=== PATIENT | male | born 1945 | race Caucasian/White ===

== ENCOUNTER → 2016-12-13 | Outpatient (CLI) | payer BC ==
--- NOTE | 2016-12-13 18:19 | REP ---
Clinical: Trauma. Technique: AP and lateral views of the right tibia / fibula. Findings: No acute fracture or dislocation. Skeletal structures, joint spaces, and surrounding soft tissues are relatively normal for age. 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 Impression: No acute fracture or dislocation. Signed by Sunny Larsen MD 12/13/2016 06:11 P
== END ==
LOC: M RAD 17:38
PROVIDERS: ATTEND Physician Assistant Medical
DX: M79.661 Pain in right lower leg (principal)

== ENCOUNTER 2016-12-21 08:45 | Inpatient (IN) | payer MEDICARE, BC ==
[~2016-12-21] VITALS: Ht 182.9 cm; Wt 101.1 kg
[2016-12-21] MEDS ORDERED: LISI10TA2 PO (09:02)
[2016-12-21] MEDS ORDERED: CEPH500C PO (09:02)
[2016-12-21] MEDS ORDERED: VICO5TAB16 PO (09:02)
[2016-12-21] MEDS ORDERED: MORPHINE 2 MG/ML 1ML SYRINGE IV ONE ×2 (09:15→14:30)
[2016-12-21] MEDS ORDERED: PIPERACILLIN/TAZOBACTAM SOD 3.375 GM in D5W MINI-BAG PLUS 50 ML IV ONE (09:15)
[2016-12-21] MEDS ORDERED: ONDANSETRON 4MG/2ML VIAL (J2405) IV ONE (09:15)
[2016-12-21] MEDS ORDERED: VANCOMYCIN HCL 1,000 MG, VIAL MATE ADAPTER 1 EACH in D5W 250 ML IV ONE (09:15)
[2016-12-21 09:27] LABS: MEAN CORPUSCULAR HEMOGLOBIN 32.3 pg (27.0-33.0); MEAN CORPUSCULAR HGB CONC 34.2 g/dl (32.0-36.5); MEAN CORPUSCULAR VOLUME 94.3 fl (80.0-96.0); WHITE BLOOD COUNT 8.7 K/mm3 (4.0-10.0)
[2016-12-21 10:25] LABS: ALBUMIN/GLOBULIN RATIO 0.93 (1.00-1.93); ALKALINE PHOSPHATASE 130 U/L (45-117); ALT/SGPT 26 U/L (12-78); ANION GAP 6 MEQ/L (8-16); AST/SGOT 24 U/L (15-37); BLOOD UREA NITROGEN 13 MG/DL (7-18); CALCIUM LEVEL 9.3 MG/DL (8.8-10.2); CARBON DIOXIDE LEVEL 28 MEQ/L (21-32); CHLORIDE LEVEL 103 MEQ/L (98-107); CREATININE FOR GFR 0.89 MG/DL (0.70-1.30); GLOMERULAR FILTRATION RATE > 60.0 (>42); GLUCOSE, FASTING 111 MG/DL (83-110); POTASSIUM SERUM 4.2 MEQ/L (3.5-5.1); SODIUM LEVEL 137 MEQ/L (136-145); TOTAL PROTEIN 8.3 GM/DL (6.4-8.2)
[2016-12-21] MEDS ORDERED: FIBE62TA PO (14:57)
[2016-12-21] MEDS ORDERED: ZOLP12.515 PO (14:57)
[2016-12-21] MEDS ORDERED: ACIDTAB7 PO (14:57)
[2016-12-21] MEDS ORDERED: LISI-538 PO (14:57)
[2016-12-21] MEDS ORDERED: TYLE500T78 PO (14:59)
[2016-12-21] MEDS ORDERED: ONDANSETRON 4MG/2ML VIAL (J2405) IV PRN (16:45)
[2016-12-21] MEDS ORDERED: BISACODYL 5 MG TAB PO PRN (16:45)
[2016-12-21] MEDS ORDERED: ACETAMINOPHEN TAB 650MG DOSE (2X325MG) PO PRN (16:45)
--- NOTE | 2016-12-21 17:11 | REP ---
Clinical: Trauma with pain and edema are . Technique: Soriano scale and color Doppler evaluation using linear high frequency transducer. Findings: Ultrasound examination of the right lower extremity deep venous structures from the common femoral vein to the popliteal vein demonstrates normal compressibility flow and wave patterns in response to respiration and augmentation. There is no evidence for deep venous thrombosis. A complex 8.4 x 1.6 x 5.5 cm fluid collection overlies the mid tibia consistent with hematoma versus abscess (less likely). Impression: No evidence for deep venous thrombosis. Edema and suspected hematoma overlies the anterior mid tibia. Signed by Sunny Larsen MD 12/21/2016 05:03 P
[2016-12-21 17:45] VITALS: BP 167/81
[2016-12-21] MEDS: PIPERACILLIN/TAZOBACTAM SOD 3.375 GM in D5W MINI-BAG PLUS 50 ML IV SCH (19:07)
[2016-12-21 20:00] VITALS: BP 136/69
--- NOTE | 2016-12-21 20:15 | REP ---
Clinical: Right lower extremity swelling. Technique: Pre and postcontrast MRI of the right tibia / fibula from the proximal metaphysis to the proximal ankle with T1 (axial, coronal, sagittal), T2 STIR ( axial, coronal, sagittal), and postcontrast T1 (axial, sagittal) sequences using 21 miles ProHance gadolinium based contrast material. Findings: Subcutaneous edema with enhancement on post gadolinium imaging is consistent with cellulitis. There is a subcutaneous hematoma overlying the mid anterior auguste measuring approximately 8.6 x 4.8 x 1.7 cm. There is no evidence for acute fracture or osseous enhancement to suggest osteomyelitis. Impression: Cellulitis and subcutaneous hematoma. No acute fracture or osteomyelitis appreciated. Signed by Sunny Larsen MD 12/21/2016 08:06 P
[2016-12-21] MEDS: VANCOMYCIN HCL 1,000 MG, VIAL MATE ADAPTER 1 EACH in D5W 250 ML IV SCH (20:32)
[2016-12-21] MEDS: PERCOCET 5MG/325MG TAB PO PRN (22:01)
[2016-12-22] VITALS: BP 127/59
[2016-12-22] MEDS: zolPIDEM CR 6.25MG TABLET (AMBIEN CR) PO SCH ×2 (02:06→21:14)
[2016-12-22] MEDS: PIPERACILLIN/TAZOBACTAM SOD 3.375 GM in D5W MINI-BAG PLUS 50 ML IV SCH ×3 (02:07→19:03)
--- NOTE | 2016-12-22 06:02 | HPE ---
DATE OF ADMISSION: 12/21/2016 PRIMARY CARE PHYSICIAN: Dr. Cast. The patient also visits Dr. Lynn in [place]. CHIEF COMPLAINT: Right lower extremity pain and swelling. HISTORY OF PRESENT ILLNESS: Mr. Liz is a 71-year-old male who presented to the emergency room (ER) due to experiencing excruciating pain in the right lower extremity mostly. The patient expressed that a week and a day ago, the patient as walking down when he missed a step, and he injured his right anterior tibia by rubbing and scratching against a wooden step. The patient expressed that the site immediately started bleeding and became swollen, and had tenderness to palpation. The patient expressed that the pain was 8-9 out of 10, and it was an aching pain. The patient went to the urgent care where they did an x-ray and they did not find any fracture of the tibia, and they started the patient on cephalexin due to the possibility of cellulitis. The patient expressed that he took this medication for one week; however, pain continues and became worse yesterday when he went to urgent care, and they continued the patient on antibiotic and they gave him Vicodin. The patient expressed that he took one pill of Vicodin which did not help, and this morning the patient expressed that the pain was excruciating; therefore, he came to the ER. The patient also noticed that the swelling has increased, especially around the ankle and a small anterior area of the tibia; however, the swelling has decreased today. The patient expressed that first in the morning when he stands up, the pain is high. However, by ambulation the pain decreases. The patient denies sensation changes or feeling that his right foot becomes colder than usual. The patient also expressed that he feels that he has a good pulse in his right lower extremity. The patient denies fever, chills, or night sweats. The patient denies loss of appetite. The patient also denies problem with moving his right lower extremity; however, palpating the area increased the pain. ALLERGIES: No known allergies. HOME MEDICATIONS: - acetaminophen 500 mg by mouth every four hours as needed for pain - Fiber Lax one tablet by mouth daily - cephalexin 500 mg by mouth every six hours - lactobacillus one tablet by mouth daily - lisinopril 20 mg by mouth daily - zolpidem tartrate 12.5 mg by mouth at bedtime PAST MEDICAL HISTORY: 1. Hypertension. 2. Insomnia. 3. Mild irritable bowel syndrome (IBS). 4. Herniated discs in the lower back. 5. Prostate cancer. PAST SURGICAL HISTORY: 1. Laminectomy. 2. Prostate surgery secondary to prostate cancer. SOCIAL HISTORY: The patient expressed that he lives seven months in [place], and five months in [place]. The patient lives alone since his a year ago. The patient has a girlfriend. However, the patient does not live with his girlfriend at this time. The patient denies illicit drug use. The patient has no pets. The patient occasionally drinks alcoholic beverages. The patient expressed that when he was in his 20s, he smoked cigarettes for four years, but less than a half pack a day. The patient has three sons who are healthy for age. FAMILY HISTORY: The patient has older sister who has breast cancer; however, after lumpectomy she is doing fine. The patient's father at age 92; however, the he had colon cancer. The patient's mother due to stomach cancer. REVIEW OF SYSTEMS: GENERAL: The patient denies fever, chills, night sweats, weight loss, weight gain. HEENT: The patient denies acute vision or hearing changes. The patient denies problems with chewing food or sinusitis. LUNGS: The patient denies shortness of breath, wheezing, or coughing. HEART: The patient denies palpitations, racing or skipping heartbeat, or chest pain. ABDOMEN: The patient denies abdominal pain, nausea, vomiting, diarrhea, constipation, melena, hematochezia, hemoptysis. EXTREMITIES: The patient has decreased ambulation due to right lower extremity pain. The patient also noticed swelling and erythema on the right lower extremity. NEUROLOGIC: The patient denies history of transient ischemic attack (TIA), cerebrovascular accident (CVA) or seizure-type activity. PHYSICAL EXAMINATION: VITAL SIGNS: Temperature 98.7, pulse 108, respiratory rate 20, blood pressure 132/87, pulse oximetry 97% on room air. GENERAL APPEARANCE: The patient is lying in bed in no acute distress. The patient was awake, alert, and oriented to time, place, and person. HEENT: Normocephalic, atraumatic. Pupils are equal and reactive to light. Oral mucosa is moist. NECK: Soft, supple. No lymphadenopathy, thyromegaly or jugular venous distention (JVD). HEART: Regular rate and rhythm. Normal S1, S2. ABDOMEN: Soft. Nontender. Positive bowel sounds in all quadrants. LUNGS: Clear breath sounds bilaterally. Good air movement. EXTREMITIES: The patient has pitting edema in the right lower extremity. The patient also has swelling on the anterior surface of the tibia, 5 x 7 cm, as well as erythema. The area is tender to palpation. The patient also has a healing wound in the anterior surface of the tibia (about 28 cm). However, no active bleeding or drainage was noticed. The patient has normal range of motion both upper and lower extremities. The patient has normal strength and sensation at the feet bilaterally. Doppler examination of the right lower extremity: The right dorsalis pedis and posterior tibial were normal. NEUROLOGIC: Cranial nerves II through XII were intact. No focal deficiencies. LABORATORY DATA: White blood cells 8.7, red blood cells 5.32, hemoglobin 17.2, hematocrit 50.1, MCV 94.3, MCH 32.3, MCHC 34.2, RDW 13, platelet count 238. ESR 16. Sodium 137, potassium 4.2, chloride 103, carbon dioxide 28, anion gap 6, BUN 13, creatinine 0.89, GFR more than 60, fasting glucose 111, lactic acid 1.2, calcium 9.3, total bilirubin 1.0, AST 24, ALT 26, alkaline phosphatase 130. C-reactive protein is 1.21. Total protein 8.3, albumin 4.0. MICROBIOLOGY: Blood culture is pending. IMAGING: MRI of the tibia-fibula without, followed by with, shows benign non-ossifying fibroma of the distal tibia, as well as enhancing subcutaneous tissue suggesting cellulitis with hematoma over the mid tibia. No osteomyelitis. Doppler ultrasound of the right lower extremity shows no evidence of deep venous thrombosis (DVT). Edema and suspected hematoma overlying the anterior mid tibia. ASSESSMENT AND PLAN: 1. Right lower extremity pain. This is possibly secondary to cellulitis as well as right mid tibia hematoma. At this point, we will continue the patient on Zosyn and vancomycin. Doppler ultrasound and physical examination did not show any possibility of compartment syndrome; however, we will contact surgery for consult in the case the patient requires drainage of hematoma. Also, we will continue trending C-reactive protein. However, the patient has normal white blood cells. The patient also is afebrile. Also, we will continue managing the pain with Percocet and morphine as needed for pain. 2. Hypertension. We will continue the patient on home medication (lisinopril 20 mg by mouth daily). 3. Back pain. This is a chronic issue. At this time, the patient is stable. 4. Deep venous thrombosis (DVT) prophylaxis. Due to the hematoma, we have not started the patient on anticoagulation; however, we have started the patient on TEDs and sequentials on the left lower extremity due to patient having hematoma and cellulitis on the right lower extremity. My preceptor for this patient encounter was Dr. Dalal. The preceptor was physically present in the building during the encounter and was fully available as needed. All aspects of the patient interview, examination, medical decision making process, and medical care plan development were reviewed and approved by the preceptor. The preceptor is aware and concurs with the plan as stated in the body of this note and will attest to such by his/her co-signature.
[2016-12-22 07:30] LABS: BASO # 0.1 K/mm3 (0.0-0.2); BASO % 0.8 % (0.0-1.0); EOS # 0.4 K/mm3 (0.0-0.50); LARGE UNSTAINED CELL # 0.3 K/mm3 (0.0-0.4); LARGE UNSTAINED CELL % 3.3 % (0.0-4.0); LYMPH # 1.5 K/mm3 (1.5-4.5); LYMPH % 19.4 % (24.0-44.0); MEAN CORPUSCULAR HEMOGLOBIN 31.6 pg (27.0-33.0); MEAN CORPUSCULAR HGB CONC 33.2 g/dl (32.0-36.5); MEAN CORPUSCULAR VOLUME 95.2 fl (80.0-96.0); MONO # 0.6 K/mm3 (0.0-0.8); MONO % 7.9 % (0.0-5.0); NEUTROPHILS # 4.8 K/mm3 (1.8-7.7); NEUTROPHILS % 63.6 % (36.0-66.0); PLATELET COUNT, AUTOMATED 242 k/mm3 (150-450); WHITE BLOOD COUNT 7.6 K/mm3 (4.0-10.0)
[2016-12-22 07:53] LABS: ALBUMIN 3.4 GM/DL (3.2-5.2); ALBUMIN/GLOBULIN RATIO 0.87 (1.00-1.93); ALKALINE PHOSPHATASE 107 U/L (45-117); ALT/SGPT 22 U/L (12-78); ANION GAP 5 MEQ/L (8-16); AST/SGOT 18 U/L (15-37); BLOOD UREA NITROGEN 14 MG/DL (7-18); CARBON DIOXIDE LEVEL 30 MEQ/L (21-32); CHLORIDE LEVEL 102 MEQ/L (98-107); CREATININE FOR GFR 0.95 MG/DL (0.70-1.30); GLOMERULAR FILTRATION RATE > 60.0 (>42); GLUCOSE, FASTING 99 MG/DL (83-110); POTASSIUM SERUM 4.2 MEQ/L (3.5-5.1); SODIUM LEVEL 137 MEQ/L (136-145); TOTAL PROTEIN 7.3 GM/DL (6.4-8.2)
[2016-12-22 08:00] VITALS: BP 139/78
[2016-12-22] MEDS: FIBER-CON 625 MG TAB PO SCH (08:10)
[2016-12-22] MEDS: VANCOMYCIN HCL 1,000 MG, VIAL MATE ADAPTER 1 EACH in D5W 250 ML IV SCH ×2 (08:10→21:14)
[2016-12-22] MEDS: PERCOCET 5MG/325MG TAB PO PRN ×3 (08:15→20:36)
[2016-12-22] MEDS: LISINOPRIL 20 MG TAB PO SCH (08:16)
--- NOTE | 2016-12-22 13:37 | IPN ---
DATE OF VISIT: 12/22/2016 SUBJECTIVE: Mr. Liz is a 71-year-old male who was seen and examined at the bedside. The patient denies overnight issues. The patient denies chest pain, orthopnea, paroxysmal nocturnal dyspnea (PND). The patient also denies nausea, vomiting, diarrhea, or constipation. The patient expressed that he has been ambulating to the bathroom, and he still feels tightness when he is ambulating on the right lower extremity. However, the patient expressed that the pain has decreased. However, he continues to have the anterior tibial swelling secondary to hematoma and erythema, possibly secondary to cellulitis. OBJECTIVE: VITAL SIGNS: Temperature 99.1, pulse 89, respiratory rate 18, blood pressure 139/78, pulse oximetry 97% on room air. TOTAL INTAKE: From yesterday 710. TOTAL OUTPUT: 150. GENERAL APPEARANCE: The patient was lying in bed, in no acute distress. The patient was awake, alert, and oriented to time, place, and person. HEENT: Normocephalic, atraumatic. Pupils are equal and reactive to light. Oral mucosa is moist. NECK: Soft, supple. No lymphadenopathy, thyromegaly, or jugular venous distention (JVD). HEART: Regular rate and rhythm. Normal S1, S2. ABDOMEN: Soft. Nontender. Positive bowel sounds in all quadrants. LUNGS: Clear breath sounds bilaterally. Good air movement. EXTREMITIES: The patient has mild swelling in the right lower extremity, mostly around the right ankle. The patient continues to have swelling on the anterior surface of the tibia, as well as erythema. The patient continues to have tenderness to palpation in the area of erythema around the hematoma area. However, no drainage, bleeding was noticed. The patient has normal range of motion in both lower extremities. The patient has normal strength in both lower extremities. LABORATORY DATA: White blood cells 7.6, red blood cells 4.09, hemoglobin 16.1, hematocrit 48.5, MCV 95.2, MCH 31.6, MCHC 33.2, RDW 13, platelet count 242, neutrophil percentage 63.6, lymphocyte percentage 19.4, monocyte percentage 7.9, eosinophil percentage 5, basophil percentage 0.8, leukocyte percentage 3.3. Sodium 137, potassium 4.2, chloride 102, carbon dioxide 30, anion gap 5, BUN 14, creatinine 0.95, glomerular filtration rate more than 60, fasting glucose 99, calcium 9, total bilirubin 1, AST 18, ALT 22, alkaline phosphatase 107. C-reactive protein 1.64, total protein 7.3, albumin 3.4. MICROBIOLOGY: Blood culture negative for the past 24 hours. ASSESSMENT AND PLAN: 1. Right lower extremity. Dr. Alvarez has seen the patient today. Based upon his recommendation, we will continue to monitor his right lower extremity for swelling and keep the foot elevated when he is not ambulating. If it starts to appear more like an abscess by tomorrow he may need drainage. however if it is improving, patient can be D/C home and follow up with Dr. Alvarez as an outpatient. At this time, we will continue the patient on the current antibiotic (Zosyn and vancomycin). Also, we will continue managing the pain with the current pain medications (morphine and Percocet as needed). The patient is afebrile, and the patient does not have leukocytosis. 2. Hypertension. We will continue the patient on lisinopril 20 mg by mouth daily. At this time, the patient's blood pressure is stable. 3. Back pain. This is a chronic issue. The patient is stable. 4. Deep venous thrombosis (DVT) prophylaxis. We will continue the patient on thromboembolic deterrents (TEDs) and sequentials on the left lower extremity due to the patient having hematoma and cellulitis on the right lower extremity. 5. History of irritable bowel syndrome. The patient expressed that he has been diagnosed with mild history of irritable bowel syndrome. We will continue the patient on calcium polycarbophil by mouth daily. The patient is also on Dulcolax 5 mg daily as needed constipation. 6. Insomnia. We will continue the patient on his home medication (Ambien CR 12.5 mg by mouth nightly). My preceptor for this patient encounter was Mirna Vernon MD. The preceptor was physically present in the building during the encounter and was fully available. As needed, all aspects of the patient interview, examination, medical decision making process, and medical care plan development were reviewed and approved by the preceptor. The preceptor is aware and concurs with the plan as stated in the body of this note and will attest to such by his/her cosignature. I, Mirna Vernon, have both independently examined this patient as well as reviewed the documentation. I have discussed in detail with the resident the findings and plan of treatment as documented in the residents documentation. I will continue to follow the patient and offer further guidance to the patients care as necessary. VITO
--- NOTE | 2016-12-22 13:59 | CR ---
DATE OF CONSULTATION: 12/22/2016 CHIEF COMPLAINT: Right lower extremity pain. REASON FOR CONSULTATION: Right lower extremity hematoma versus abscess. HISTORY OF PRESENT ILLNESS: The patient is a 71-year-old male who presents to the emergency room due to increasing pain and swelling in the right lower extremity. A week ago from this Tuesday, the patient with walking up some stairs and missed a step and slid down his auguste creating a large scrape as well as a fairly quick onset of a hematoma in his mid anterior auguste. He was followed up at outpatient Urgent Care. The wound was cleaned up and dressing was applied. He was placed on Keflex outpatient. However, because of increasing pain and swelling in the leg, he came into the emergency room last night for evaluation. Overnight, he was laid in bed with the right leg elevated. This morning, he feels like the pain, the swelling and the redness are all much improved. He denies any fevers or chills, but he is having like a sharp pain any time he tries to walk on that right leg. He denies any blood thinners at home. No previous trauma to the area. He does have a history of venous stasis dermatitis of bilateral lower extremities, but he has not had any surgery for those the past and does not wear any compression stockings. PAST MEDICAL HISTORY: 1. Hypertension. 2. Insomnia. 3. Irritable bowel syndrome (IBS). 4. Herniated disc of his lower back. 5. Prostate cancer. PAST SURGICAL HISTORY: 1. Laminectomy. 2. Prostate surgery. ALLERGIES: None. HOME MEDICATIONS: Please see medical record. FAMILY HISTORY: Noncontributory. SOCIAL HISTORY: Denies any current tobacco or drug abuse. REVIEW OF SYSTEMS: Pertinent positive and negatives as stated in history of present illness (HPI). PHYSICAL EXAMINATION: General: The patient is alert and oriented times three, in no acute distress. Vitals: Temperature 99.1, pulse 89, respirations 18, blood pressure 139/78, pulse oximetry 97% on room air. HEENT: Pupils equally round and react to light and accommodation. Heart: S1, S2, regular rate and rhythm. Lungs: Clear to auscultation bilaterally. Abdomen: Soft, nontender, nondistended. Extremities: There are bilateral lower extremity venous stasis dermatitis. Distal pulses are palpable and equal bilaterally. There was a 7 x 7 cm fluid collection in the right mid anterior auguste without any surrounding erythema other than his dermatitis. No warmth, but the area is fluctuant and soft, consistent with likely resolving abscess versus hematoma. There is also bruising to the right lower extremity distal to this, likely gravity dependent. LABORATORY DATA: White count 8.7 yesterday and 7.6 today, hemoglobin 16.1, platelets 242. Potassium 4.2 and lactic acid 1.2. IMAGING STUDIES: MRI of the extremity shows cellulitis with a subcutaneous hematoma of the right auguste measuring 8.6 x 4.8 by 1.7 cm. No evidence for fracture or osteomyelitis. Vascular ultrasound shows no signs of deep vein thrombosis (DVT). Edema and a suspected hematoma overlies the anterior mid tibia. ASSESSMENT/PLAN: The patient is a 71-year-old male who presents status post fall with a hematoma of the right lower extremity. This does not appear to be infected currently. This is likely hematoma rather than an abscess. It is soft to the touch. His change in symptoms for the past week is likely secondary to the swelling going down into the ankle and the foot due to gravity which is causing some tightening in the ankle and some pain associated with that. Since he has been in bed for 24 hours with the right leg elevated up in the air, the swelling has gone down and his pain and symptoms have already shown signs of improvement. At this time, since is the first time I have seen it, it does not appear to be tight. I am not concerned about muscle necrosis posterior to this and it does not appear to be an abscess on physical exam. Therefore, we will continue to watch it and keep the foot elevated when he is not ambulating. Will see how he does by tomorrow morning. If it starts to appear more like an abscess by tomorrow, then we will consider drainage, otherwise if it is showing signs of continued improvement, then he can be discharged home tomorrow and follow up with me in the office as an outpatient.
[2016-12-22 16:00] VITALS: BP 148/75
[2016-12-22 20:00] VITALS: BP 154/81
[2016-12-23] VITALS: BP 138/78
[2016-12-23] MEDS: PIPERACILLIN/TAZOBACTAM SOD 3.375 GM in D5W MINI-BAG PLUS 50 ML IV SCH ×3 (02:15→17:17)
[2016-12-23] MEDS: PERCOCET 5MG/325MG TAB PO PRN ×3 (02:16→17:16)
[2016-12-23 07:00] LABS: BASO # 0.1 K/mm3 (0.0-0.2); BASO % 0.9 % (0.0-1.0); EOS # 0.4 K/mm3 (0.0-0.50); EOS % 5.6 % (0.0-3.0); LARGE UNSTAINED CELL # 0.1 K/mm3 (0.0-0.4); LYMPH # 1.7 K/mm3 (1.5-4.5); LYMPH % 21.3 % (24.0-44.0); MEAN CORPUSCULAR HEMOGLOBIN 30.9 pg (27.0-33.0); MEAN CORPUSCULAR HGB CONC 32.7 g/dl (32.0-36.5); MEAN CORPUSCULAR VOLUME 94.3 fl (80.0-96.0); MONO # 0.6 K/mm3 (0.0-0.8); NEUTROPHILS # 4.6 K/mm3 (1.8-7.7); NEUTROPHILS % 62.3 % (36.0-66.0); PLATELET COUNT, AUTOMATED 259 k/mm3 (150-450); RED CELL DISTRIBUTION WIDTH 13.1 % (11.5-14.5); WHITE BLOOD COUNT 7.3 K/mm3 (4.0-10.0)
[2016-12-23 07:12] LABS: ALBUMIN 3.5 GM/DL (3.2-5.2); ALBUMIN/GLOBULIN RATIO 0.78 (1.00-1.93); ALKALINE PHOSPHATASE 107 U/L (45-117); ALT/SGPT 23 U/L (12-78); ANION GAP 9 MEQ/L (8-16); AST/SGOT 15 U/L (15-37); BILIRUBIN,TOTAL 1.2 MG/DL (0.2-1.0); BLOOD UREA NITROGEN 11 MG/DL (7-18); CARBON DIOXIDE LEVEL 28 MEQ/L (21-32); CHLORIDE LEVEL 100 MEQ/L (98-107); CREATININE FOR GFR 1.08 MG/DL (0.70-1.30); GLOMERULAR FILTRATION RATE > 60.0 (>42); GLUCOSE, FASTING 98 MG/DL (83-110); SODIUM LEVEL 137 MEQ/L (136-145)
[2016-12-23 08:00] VITALS: BP 135/80
[2016-12-23] MEDS: FIBER-CON 625 MG TAB PO SCH (08:00)
[2016-12-23] MEDS: LISINOPRIL 20 MG TAB PO SCH (08:00)
[2016-12-23] MEDS: VANCOMYCIN HCL 1,000 MG, VIAL MATE ADAPTER 1 EACH in D5W 250 ML IV SCH ×2 (08:00→20:01)
[2016-12-23] MEDS ORDERED: MIRALAX *UNIT DOSE* 17GM PACKET PO PRN (08:30)
[2016-12-23] MEDS ORDERED: LIDOCAINE W/EPINEPHRINE 1% 20ML VIAL SC ONE (09:00)
[2016-12-23] MEDS: DOCUSATE SODIUM 100 MG CAP PO SCH ×2 (10:35→20:01)
[2016-12-23 16:00] VITALS: BP 141/83
--- NOTE | 2016-12-23 16:01 | IPN ---
DATE: 12/23/2016 SUBJECTIVE: Mr. Liz is a 71-year-old male who was seen and examined at the bedside. Patient denies overnight issues. Patient denies chest pain, orthopnea , or paroxysmal nocturnal dyspnea (PND). Patient also denies nausea, vomiting, or diarrhea. However, patient feels constipated. Patient expressed that he still has discomfort with walking with the right lower extremity and he feels that his hematoma has not changed in size. OBJECTIVE: VITAL SIGNS: Temperature 98.4, pulse 78, respiratory rate 18, blood pressure 138/78, pulse oximetry 96% on room air. Total intake from yesterday 2510, total output 1600. GENERAL APPEARANCE: Patient was lying in bed in no acute distress. Patient was awake, alert, and oriented to time, place, and person. HEENT: Normocephalic, atraumatic. Pupils equal, round, and reactive to light. Oral mucous is moist. NECK: Soft, supple. No lymphadenopathy. No thyromegaly. No jugular venous distention (JVD). HEART: Regular rate and rhythm, normal S1, S2. ABDOMEN: Soft, nontender. Positive bowel sounds in all quadrants. LUNGS: Clear breath sounds bilaterally, good air movement. EXTREMITIES: Patient has mild swelling in the right lower extremity, which is decreased compared to yesterday, mostly around the right ankle. Patient has normal range of motion in both upper and lower extremities. The hematoma in anterior tibia has not changed in size compared to yesterday, however the erythema has decreased compared to yesterday. Patient has mild tenderness with palpation in the erythematous area and the anterior side of the right lower extremity. LABORATORY DATA: White blood cells 7.3, red blood cells 5.15, hemoglobin 15.9, hematocrit 48.5, MCV 94.3, MCH 30.9, MCHC 32.7, RDW 13.1, platelet count 259, neutrophil percentage 62.3, lymphocyte percentage 21.3, monocyte percentage 8, eosinophil percentage 5.6, basophil percentage 0.9, leukocyte percentage 2. Sodium 137, potassium 4, chloride 100, carbon dioxide 28, anion gap 9, BUN 11, creatinine 1.07, glomerular filtration rate more than 60, fasting glucose 98, calcium 9, total bilirubin 1.2, AST 15, ALT 23, alkaline phosphatase 107, C-reactive protein 1.52, total protein 8, albumin 3.5. Microbiology: Blood culture no growth after 48 hours. ASSESSMENT AND PLAN: 1. Right lower extremity discomfort and pain. Patient has a raised area about 8 cm on anterior side of the tibia which could be consistent with hematoma versus abscess as well as erythema which could be secondary to cellulitis. Based on Dr. Alvarez's recommendation, patient's foot was raised since yesterday, however no improvement was detected. Dr. Alvarez recommended for bedside incision and drainage (I and D) which will be performed this afternoon. Patient agreed to the procedure. After the procedure, patient may be able to be discharged and followup with Dr. Alvarez. At this time, patient is stable. 2. Hypertension. Will continue with the current dosage of lisinopril. Patient's blood pressure is stable. 3. Back pain. This is a chronic issue. Patient is stable at this time. 4. Deep venous thrombosis (DVT) prophylaxis. Will continue patient on thromboembolism deterrents (TEDs) and sequential compression device on the left lower extremity since the right lower extremity has cellulitis and hematoma. 5. History of irritable bowel syndrome. The patient has been diagnosed with a mild history of irritable bowel syndrome. Patient expressed that he has been having constipation for the past 3 days, therefore patient is started on Colace. 6. Insomnia. We will continue patient on home dosage of Ambien CR (12.5 mg by mouth nightly). My preceptor for this patient encounter was Dr. Mirna Vernon. The preceptor was physically present in the building during the encounter and was fully available. As needed, all aspects of the patient interview, examination, medical decision making process, and medical care plan development were reviewed and approved by the preceptor. The preceptor is aware and concurs with the plan as stated in the body of this note and will attest to such by his/her cosignature. I, Mirna Vernon, have both independently examined this patient as well as reviewed the documentation. I have discussed in detail with the resident the findings and plan of treatment as documented in the residents documentation. I will continue to follow the patient and offer further guidance to the patients care as necessary. VITO
[2016-12-23 20:00] VITALS: BP 134/71
[2016-12-23] MEDS: zolPIDEM CR 6.25MG TABLET (AMBIEN CR) PO SCH (21:00)
[2016-12-24] VITALS: BP 150/81
[2016-12-24] MEDS: MORPHINE 2 MG/ML 1ML SYRINGE IV PRN ×2 (00:42→15:42)
[2016-12-24] MEDS: PIPERACILLIN/TAZOBACTAM SOD 3.375 GM in D5W MINI-BAG PLUS 50 ML IV SCH ×3 (00:48→17:38)
[2016-12-24] MEDS: PERCOCET 5MG/325MG TAB PO PRN ×5 (01:56→20:22)
[2016-12-24 07:33] LABS: BASO # 0.1 K/mm3 (0.0-0.2); BASO % 1.5 % (0.0-1.0); EOS # 0.4 K/mm3 (0.0-0.50); EOS % 4.6 % (0.0-3.0); LARGE UNSTAINED CELL # 0.3 K/mm3 (0.0-0.4); LARGE UNSTAINED CELL % 2.7 % (0.0-4.0); LYMPH # 1.4 K/mm3 (1.5-4.5); LYMPH % 15.1 % (24.0-44.0); MEAN CORPUSCULAR HEMOGLOBIN 31.6 pg (27.0-33.0); MEAN CORPUSCULAR HGB CONC 33.6 g/dl (32.0-36.5); MONO # 0.7 K/mm3 (0.0-0.8); MONO % 7.8 % (0.0-5.0); NEUTROPHILS # 6.4 K/mm3 (1.8-7.7); NEUTROPHILS % 68.3 % (36.0-66.0); PLATELET COUNT, AUTOMATED 273 k/mm3 (150-450); RED CELL DISTRIBUTION WIDTH 12.9 % (11.5-14.5); WHITE BLOOD COUNT 9.4 K/mm3 (4.0-10.0)
[2016-12-24] MEDS ORDERED: DOXY-278 PO (07:40)
[2016-12-24 07:54] LABS: ALBUMIN 3.3 GM/DL (3.2-5.2); ALBUMIN/GLOBULIN RATIO 0.92 (1.00-1.93); ALKALINE PHOSPHATASE 100 U/L (45-117); ALT/SGPT 18 U/L (12-78); ANION GAP 9 MEQ/L (8-16); AST/SGOT 18 U/L (15-37); BLOOD UREA NITROGEN 13 MG/DL (7-18); CARBON DIOXIDE LEVEL 26 MEQ/L (21-32); CHLORIDE LEVEL 102 MEQ/L (98-107); CREATININE FOR GFR 1.03 MG/DL (0.70-1.30); GLOMERULAR FILTRATION RATE > 60.0 (>42); GLUCOSE, FASTING 107 MG/DL (83-110); POTASSIUM SERUM 4.3 MEQ/L (3.5-5.1); SODIUM LEVEL 137 MEQ/L (136-145); TOTAL PROTEIN 6.9 GM/DL (6.4-8.2)
[2016-12-24 08:18] VITALS: BP 116/67
[2016-12-24] MEDS: DOCUSATE SODIUM 100 MG CAP PO SCH ×2 (08:19→20:20)
[2016-12-24] MEDS: FIBER-CON 625 MG TAB PO SCH (08:19)
[2016-12-24] MEDS: VANCOMYCIN HCL 1,000 MG, VIAL MATE ADAPTER 1 EACH in D5W 250 ML IV SCH ×2 (08:19→20:20)
[2016-12-24] MEDS: LISINOPRIL 20 MG TAB PO SCH (08:20)
--- NOTE | 2016-12-24 09:37 | RO ---
DATE OF PROCEDURE: DIAGNOSIS: Right lower extremity fluid collection. POSTOPERATIVE DIAGNOSIS: Right lower extremity hematoma. PROCEDURE: Incision and drainage of right lower extremity hematoma. SURGEON: Dr. Alvarez DRAMATIC ARTS HISTORIAN: None. ANESTHESIA: 10 mL of 1% lidocaine plain with epinephrine. COMPLICATIONS: None. INDICATIONS FOR PROCEDURE: The patient 71-year-old male presents with a week and a half history of right lower extremity swelling that is causing it to be difficult for him to walk. There is fluctuant area overlying the right auguste consistent with likely abscess versus infected hematoma versus regular hematoma formation. Due to difficulty with pain and swelling and difficulty with ambulation, the recommendation is to proceed with incision and drainage. Risks and benefits of the procedure, not limited but including bleeding, infection and need for further surgery was discussed in detail with the patient, informed consent was obtained and procedure was scheduled to be done right at the bedside. DESCRIPTION OF PROCEDURE: The patient right lower extremity was elevated, sterilely prepped and draped with some Betadine. Next, a time-out was done with the nurse in the room confirming proper patient and proper procedure. Following that, lidocaine was injected into the skin and subcutaneous tissue just lateral to this lesion of the anterior auguste in an area of healthy tissue. Following that, an 11 blade scalpel was used at an angle to cut an 8 mm incision into the fluctuant portion of this fluid collection. Immediately a large amount of old hematoma started to poor out. Next, all of the hematoma contents were carefully expressed out through this incision. Once that was completed, half inch iodoform packing was packed inside of the wound, cut about 2 inches outside of the skin, covered with 4x4, as well as a Kerlix wrap around the leg thus ending the procedure. The patient tolerated procedure well and will continue to do packing changes once a day for the next week and followup with me in the office as needed.
[2016-12-24 16:30] VITALS: BP 113/55
--- NOTE | 2016-12-24 17:48 | IPN ---
DATE: 12/24/2016 SUBJECTIVE: Mr. Liz is a 71-year-old male who was seen and examined at the bedside. Yesterday Dr. Alvarez performed the recommended bedside incision and drainage. The patient tolerated the procedure well however after the procedure patient expressed that he continued to have pain and pain was increased. Patient is on pain medication, morphine and Percocet as needed for pain. Patient expressed that he forgot to ask a nurse for the pain medication. Patient requesting to stay at the hospital for one more night since he continued to have pain and discomfort at the surgical site which is in proportion in the procedure. Patient denies overnight fevers, chills, or night sweats. Patient also denies chest pain, palpitation, resting skipping heartbeat, or shortness of breath. Patient headache a good appetite today. Patient was able to ambulate however patient expressed that after procedure pain was increased with ambulation. OBJECTIVE: VITAL SIGNS: Temperature 98.6, pulse 83, respiratory rate 16, blood pressure 116/67, pulse oximetry 96% on room air. Total intake from yesterday 1210, total output 2370. GENERAL APPEARANCE: Patient was lying in bed in no acute distress. Patient was awake, alert, and oriented to time, place, and person. HEENT: Normocephalic, atraumatic. Pupils equal, round, and reactive to light. Oral mucous is moist. NECK: Soft, supple. No lymphadenopathy. No thyromegaly. No jugular venous distention (JVD). HEART: Regular rate and rhythm, normal S1, S2. ABDOMEN: Soft, nontender. Positive bowel sounds in all quadrants. LUNGS: Clear breath sounds bilaterally, good air movement. EXTREMITIES: Patient has surgical wound in the right lower extremity secondary to bedside incision and drainage which was done by Dr. Alvarez yesterday. Surgical wound was clean and no drainage was noticed. Patient has edema possibly secondary to cellulitis which has decreased on the right lower extremity. Patient has tenderness and pain to palpation at the surgical area which is in proportion to the procedure. LABORATORY DATA: White blood cells 9.4, red blood cells 4.86, hemoglobin 15.3, hematocrit 45.6, MCV 94, MCH 31.6, MCHC 33.6, RDW 12.9, platelet count 273, neutrophil percentage 68.3, lymphocyte percentage 15.1, monocyte percentage 7.8, eosinophil percentage 4.6, basophil percentage 1.5, leukocyte percentage 2.7. Sodium 137, potassium 4.3, chloride 102, carbon dioxide 26, anion gap 9, BUN 13, creatinine 1.03, glomerular filtration rate more than 60, fasting glucose 107, calcium 9, total bilirubin 1, AST 18, ALT 23, alkaline phosphatase 100, C-reactive protein 1.58, total protein 6.9, albumin 3.3 Microbiology: Blood culture no growth after 72 hours. ASSESSMENT AND PLAN: 1. Right lower extremity hematoma. Dr. Alvarez has performed incision and drainage at bedside yesterday. At this time we will continue with the patient on the current antibiotics (vancomycin and Zosyn). Patient will be seen again today with Dr. Alvarez and surgical wound will be evalauted. Patient will stay in the hospital for one more night for pain management. However at this time patients pain is controlled. 2. Hypertension. Will continue patient on the current dosage of lisinopril. Patient's blood pressure is controlled. 3. Back pain. This is a chronic issue. Patient is stable at this time. 4. Deep venous thrombosis (DVT) prophylaxis . Will continue patient on thromboembolism deterrents (TEDs) and sequential compression device on the left lower extremity due to right lower extremity cellulitis and surgical wound. 5. Cellulitis of the right lower extremity. Erythema has decreased and we will continue with the current antibiotics. 6. History of irritable bowel syndrome. Patient has been started on Colace. 6. Insomnia. We will continue patient on home dosage of Ambien CR. My preceptor for this patient encounter was Dr. Mirna Vernon. The preceptor was physically present in the building during the encounter and was fully available. As needed, all aspects of the patient interview, examination, medical decision making process, and medical care plan development were reviewed and approved by the preceptor. The preceptor is aware and concurs with the plan as stated in the body of this note and will attest to such by his/her cosignature. I, Mirna Vernon, have both independently examined this patient as well as reviewed the documentation. I have discussed in detail with the resident the findings and plan of treatment as documented in the residents documentation. I will continue to follow the patient and offer further guidance to the patients care as necessary. VITO
[2016-12-24 20:00] VITALS: BP 132/73
[2016-12-24] MEDS: zolPIDEM CR 6.25MG TABLET (AMBIEN CR) PO SCH (21:00)
[2016-12-25] MEDS: PERCOCET 5MG/325MG TAB PO PRN ×2 (02:46→07:05)
[2016-12-25] MEDS: PIPERACILLIN/TAZOBACTAM SOD 3.375 GM in D5W MINI-BAG PLUS 50 ML IV SCH ×2 (02:46→10:18)
[2016-12-25 03:04] VITALS: BP 148/75
[2016-12-25 06:30] LABS: BASO # 0.1 K/mm3 (0.0-0.2); EOS # 0.4 K/mm3 (0.0-0.50); EOS % 5.5 % (0.0-3.0); LARGE UNSTAINED CELL # 0.2 K/mm3 (0.0-0.4); LARGE UNSTAINED CELL % 2.5 % (0.0-4.0); LYMPH % 22.2 % (24.0-44.0); MEAN CORPUSCULAR HGB CONC 32.9 g/dl (32.0-36.5); MEAN CORPUSCULAR VOLUME 94.2 fl (80.0-96.0); MONO # 0.6 K/mm3 (0.0-0.8); MONO % 7.7 % (0.0-5.0); NEUTROPHILS # 4.9 K/mm3 (1.8-7.7); NEUTROPHILS % 61.2 % (36.0-66.0); PLATELET COUNT, AUTOMATED 291 k/mm3 (150-450); RED CELL DISTRIBUTION WIDTH 13.2 % (11.5-14.5); WHITE BLOOD COUNT 7.9 K/mm3 (4.0-10.0)
[2016-12-25 06:51] LABS: ALBUMIN 3.5 GM/DL (3.2-5.2); ALKALINE PHOSPHATASE 105 U/L (45-117); ALT/SGPT 20 U/L (12-78); ANION GAP 4 MEQ/L (8-16); AST/SGOT 14 U/L (15-37); BLOOD UREA NITROGEN 15 MG/DL (7-18); CALCIUM LEVEL 8.9 MG/DL (8.8-10.2); CARBON DIOXIDE LEVEL 31 MEQ/L (21-32); CHLORIDE LEVEL 103 MEQ/L (98-107); GLOMERULAR FILTRATION RATE > 60.0 (>42); GLUCOSE, FASTING 101 MG/DL (83-110); POTASSIUM SERUM 4.2 MEQ/L (3.5-5.1); SODIUM LEVEL 138 MEQ/L (136-145); TOTAL PROTEIN 7.4 GM/DL (6.4-8.2)
[2016-12-25 08:00] VITALS: BP 130/68
[2016-12-25] MEDS: VANCOMYCIN HCL 1,000 MG, VIAL MATE ADAPTER 1 EACH in D5W 250 ML IV SCH (08:21)
[2016-12-25] MEDS: FIBER-CON 625 MG TAB PO SCH (08:40)
[2016-12-25] MEDS: DOCUSATE SODIUM 100 MG CAP PO SCH (08:40)
[2016-12-25 08:41] VITALS: BP 130/68
[2016-12-25] MEDS: LISINOPRIL 20 MG TAB PO SCH (08:41)
[2016-12-25] MEDS ORDERED: CEFD1CAP8 PO ×2 (10:11→10:12)
[2016-12-25] MEDS: MORPHINE 2 MG/ML 1ML SYRINGE IV PRN (12:35)
[2016-12-25] MEDS ORDERED: PERCOCET PO ×3 (12:51→13:02)
--- NOTE | 2016-12-26 08:29 | DSES ---
DATE OF ADMISSION: 12/21/2016 DATE OF DISCHARGE: 12/25/2016 PRIMARY CARE PHYSICIAN: Dr. Cast in [place], and Dr. Lynn in [place]. MANAGER SUPPLY CHAIN PLANNING: Dr. Alvarez PROCEDURE: Bedside incision and drainage of the right lower extremity hematoma. PRIMARY DIAGNOSIS: Hematoma of the right lower extremity. SECONDARY DIAGNOSES: 1. Cellulitis of the right lower extremity. 2. Hypertension. 3. Back pain. 4. Irritable bowel syndrome. 5. Insomnia. DISCHARGE MEDICATIONS: - cefdinir 300 mg twice a day for 6 days - doxycycline 100 mg by mouth every 12 hours for 6 days - acetaminophen 500 mg by mouth every 4 hours as needed pain - calcium polycarbophil one tablet by mouth daily - cephalexin 500 mg by mouth every 6 hours - lactobacillus one tablet by mouth daily - lisinopril 20 mg by mouth daily - zolpidem tartrate 12.5 mg by mouth nightly HOSPITAL COURSE: Mr. Liz is a 71-year-old male with multiple past medical history who presented to the emergency room (ER) due to experiencing right lower extremity pain and swelling. It was noticed that patient had swelling of the right lower extremity as well as erythema. MRI of the tibia-fibula without followed by with contrast indicated possibility of cellulitis and subcutaneous hematoma, however, no acute fracture or osteomyelitis appreciated. Also, we had ordered duplex of the right lower extremity, which shows no evidence of deep venous thrombosis (DVT); however, it shows edema and suspected hematoma overlies the anterior mid tibia. We consulted surgery (Dr. Alvarez) who saw the patient. We started patient on Zosyn and vancomycin. Patient surgery recommended we keep the right lower extremity elevated to see if the swelling has decreased. Also, we have checked the pulse of the right lower extremity on the foot, which was intact. Patient did not show any improvement for 24 hours after elevation of the right lower extremity and had difficulty with ambulation. Dr. Alvaerz performed the bedside incision and drainage (I and D) with the packing. Patient stayed for one more night for pain management. At time of discharge, patient was medically optimized and pain was improved. Also, we set up home health care for followup regarding wound management. We also encouraged patient to followup with Dr. Alvarez within 5 days. Also, we discharged patient with cefdinir and doxycycline for 6 more days. DISCHARGE PLACEMENT: Home with home health. FOLLOWUP: Please follow with Dr. Alvarez within 5 days. ACTIVITY: Activity as tolerated by patient. My preceptor for this patient encounter was Dr. Mirna Vernon. The preceptor was physically present in the building during the encounter and was fully available. As needed, all aspects of the patient interview, examination, medical decision making process, and medical care plan development were reviewed and approved by the preceptor. The preceptor is aware and concurs with the plan as stated in the body of this note and will attest to such by his/her cosignature. I, Mirna Vernon, have both independently examined this patient as well as reviewed the documentation. I have discussed in detail with the resident the findings and plan of treatment as documented in the residents documentation. I will continue to follow the patient and offer further guidance to the patients care as necessary. VITO
== END 2016-12-25 14:15 | disposition home health service (06) | DRG 603 ==
LOC: M ED 08:45 → M ED INP 16:30 → M PED 17:34
PROVIDERS: ADMIT Internal Medicine; ATTEND Internal Medicine
PROC: 0HDKXZZ Extraction of Right Lower Leg Skin, External Approach (ICD-10-PCS; principal; 2016-12-24)
DX: L03.115 Cellulitis of right lower limb (principal); I10 Essential (primary) hypertension; G47.00 Insomnia, unspecified; M51.26 Other intervertebral disc displacement, lumbar region; I87.2 Venous insufficiency (chronic) (peripheral); K58.1 Irritable bowel syndrome with constipation; Z85.46 Personal history of malignant neoplasm of prostate; Z79.899 Other long term (current) drug therapy; Z87.891 Personal history of nicotine dependence; S80.11XA Contusion of right lower leg, initial encounter; W22.09XA Striking against other stationary object, initial encounter; Y92.9 Unspecified place or not applicable